=== PATIENT | female | born 2005 | race Caucasian/White ===

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

== ENCOUNTER 2025-05-31 14:33 | Emergency (ER) | payer OTHER ==
[~2025-05-31] VITALS: Ht 165.1 cm; Wt 90.1 kg
[2025-05-31 14:49] VITALS: O2SAT 99
[2025-05-31 19:07] VITALS: BP 118/79; PULSE 98; RESP 14; TEMP 36.6; O2SAT 97
== END 2025-05-31 19:08 | disposition home or self-care (01) ==
LOC: ER 14:33
DX: R05.9 Cough, unspecified (principal); H91.90 Unspecified hearing loss, unspecified ear
CPT/HCPCS: 71045; 99283